=== PATIENT | male | born 1980 | race Caucasian/White ===

== ENCOUNTER 2017-02-13 18:01 | Emergency (ER) | payer OTHER ==
[~2017-02-13] VITALS: Ht 165.1 cm; Wt 72.6 kg
[2017-02-13 18:06] VITALS: BP 128/70
--- NOTE | 2017-02-13 18:46 | RADIOLOGY REPORT ---
EXAMINATION: XR FOOT, RIGHT CLINICAL INFORMATION: History of fall, bruising, swelling of right foot. COMPARISON: None TECHNIQUE: AP, lateral, and oblique views of the right foot. FINDINGS: The bony alignment is intact. The cortices are intact. 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 Accessory ossicle is noted overlying the cuboid. No radiographic evidence of any acute fracture dislocation or any soft tissue abnormality or foreign body visualized. IMPRESSION: No radiographic evidence of any acute fracture, dislocation, soft tissue injury or radiopaque foreign body present.
--- NOTE | 2017-02-13 19:02 | ED UPPER/LOWER EXTREMITY COMPL ---
History of Present Illness General Chief Complaint: Foot or Ankle Injury Stated Complaint: R ?BROKEN FOOT S/P FALL Source: patient Exam Limitations: no limitations Vital Signs & Intake/Output Vital Signs & Intake/Output Vital Signs Date Time Temp Pulse Resp B/P Pulse O2 O2 Flow FiO2 Ox Delivery Rate 02/13 1806 97.7 117 16 128/70 96 Room Air Allergies Coded Allergies: NO KNOWN ALLERGIES (04/13/13) Reconcile Medications Aspirin/Acetaminophen/Caffeine (Excedrin Migraine Caplet) 250 MG-250 MG-65 MG TABLET 2 CAP PO PRN PAIN (Reported) Aspirin/Caffeine (Back & Body Pain Reliever Cplt) 500 MG-32.5 MG TABLET 2 CAP PO PRN PAIN (Reported) Triage Note: PT STATES HE FELL DOWN THE STAIRS ON TUESDAY AND THINKS HE HAS A BROKEN RIGHT FOOT. PT HAS BRUISING AND SWELLING TO RIGHT FOOT Triage Nurses Notes Reviewed? yes Onset: Abrupt Duration: constant Timing: recent history Severity: severe Severity Numbers: 8 HPI: Patient is a 36-year-old male who states that 2 days ago patient fell down stairs and since has been complaining of right dorsal foot pain swelling and ecchymosis. Patient does walk with a limp due to pain. Denies any ankle pain or knee pain. (RENÉ VO) Past History Travel History Traveled to [place] past 21 day No Medical History Any Pertinent Medical History? none Surgical History Surgical History: non-contributory Psychosocial History What is your primary language Italian Tobacco Use: Current Daily Use Daily Tobacco Use Amount/Type: =< 4 Cigarettes daily ETOH Use: denies use Illicit Drug Use: denies illicit drug use Family History Hx Contributory? No (RENÉ VO) Review of Systems Review of Systems Constitutional: Reports: no symptoms. EENTM: Reports: no symptoms. Respiratory: Reports: no symptoms. Cardiovascular: Reports: no symptoms. Gastrointestinal/Abdominal: Reports: no symptoms. Genitourinary: Reports: no symptoms. Musculoskeletal: Reports: see HPI, joint pain. Skin: Reports: see HPI. Neurological/Psychological: Reports: no symptoms. Hematologic/Endocrine: Reports: no symptoms. Immunological: Reports: no symptoms. All Other Systems: Reviewed and Negative (RENÉ VO) Physical Exam Physical Exam General Appearance: no apparent distress Neurologic/Tendon: normal sensation, normal motor functions, normal tendon functions Skin: intact Comments: Well-developed well-nourished no apparent distress. HEENT: Atraumatic, extraocular motion intact Neck: Supple, no lymphadenopathy Back: Nontender Respiratory: No respiratory distress Extremities: Right ankle nontender full active range of motion Right foot noted generalized point tenderness swelling and ecchymosis Sensation intact skin intact Right lower extremity dermatomes intact pedal pulses +2 Neuro: Alert and oriented x3 Psych: Mood affect normal, normal memory normal judgment. (RENÉ VO) Progress Differential Diagnosis: arterial insufficiency, compartment syndrome, contusion, dislocation, DVT, fracture, gout, septic arthritis, sprain, tendon injury Plan of Care: Orders Procedure Date/time Status Durable Medical Equipment 02/13 1923 Active No osseous injury or concern to fracture of where patient was symptomatic. I placed Kj wrap to right foot pre-and post-neurovascular was intact crutches were also administered for weightbearing as tolerated status (RENÉ VO) Diagnostic Imaging: Viewed by Me: Radiology Read. Radiology Impression: no fracture Comments: PATIENT: JUSTICE PETTY PRESENT AGE: 36 PATIENT ACCOUNT NO: [id number] : 80 LOCATION: [facility] ORDERING PHYSICIAN: JOANNE GONSALVES (TBS) DO SERVICE DATE: 02/13/17 EXAM TYPE: RAD - XRY-FOOT COMPLETE, R EXAMINATION: XR FOOT, RIGHT CLINICAL INFORMATION: History of fall, bruising, swelling of right foot. COMPARISON: None TECHNIQUE: AP, lateral, and oblique views of the right foot. FINDINGS: The bony alignment is intact. The cortices are intact. 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 Accessory ossicle is noted overlying the cuboid. No radiographic evidence of any acute fracture dislocation or any soft tissue abnormality or foreign body visualized. IMPRESSION: No radiographic evidence of any acute fracture, dislocation, soft tissue injury or radiopaque foreign body present. DICTATED BY: MICHELLE MARQUEZ MD DATE/TIME DICTATED:02/13/171840 (RENÉ VO) Departure Departure Disposition: HOME OR SELF CARE Condition: Stable Clinical Impression Primary Impression: Right foot sprain Referrals: AARON WILCOX,JODY KAPADIA (PCP/Family) Additional Instructions: As discussed begin icing the area directly 20 minutes every 2 hours. Begin to elevate the foot for swelling begin using the Kj wrap for swelling begin using the crutches and to you walk without pain. If no better in one week follow-up with orthopedic DR. WALKER, If symptoms worsen return to emergency room Departure Forms: Customer Survey General Discharge Information (TEVIN PRADO,RENÉ) PA/EBD TEACHER Co-Sign Statement Statement: ED Attending supervision documentation- [] I saw and evaluated the patient. I have also reviewed all the pertinent lab results and diagnostic results. I agree with the findings and the plan of care as documented in the PA's/EBD TEACHER's documentation. [X] I have reviewed the ED Record and agree with the PA's/EBD TEACHER's documentation. [] Additions or exceptions (if any) to the PAs/EBD TEACHER's note and plan are summarized below: [] (HUBERT WILCOX,NILESH Vasquez)
[2017-02-13] MEDS ORDERED: BACK & BODY PA1 EACH PO (19:05)
[2017-02-13] MEDS ORDERED: EXCEDRIN MIGRA1 EAC1 PO (19:05)
== END 2017-02-13 19:22 ==
LOC: ERH 18:01
DX: S93.601A Unspecified sprain of right foot, initial encounter (principal); W10.9XXA Fall (on) (from) unspecified stairs and steps, initial encounter; Y92.9 Unspecified place or not applicable; Y93.9 Activity, unspecified
CPT/HCPCS: 73630-RT

== ENCOUNTER 2018-01-14 04:39 | Emergency (ER) | payer OTHER ==
[~2018-01-14] VITALS: Ht 165.1 cm; Wt 73.9 kg
[~2018-01-14 04:39] MED LIST: BACK & BODY PA1 EACH PO; EXCEDRIN MIGRA1 EAC1 PO
[2018-01-14 04:44] VITALS: BP 149/94
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
[2018-01-14] MEDS ORDERED: CYCLOBENZAPRINE10 M1 PO (05:11)
[2018-01-14] MEDS ORDERED: IBUPROFEN800 M1 PO (05:11)
== END 2018-01-14 05:39 ==
LOC: ERH 04:39
DX: Z20.2 Contact with and (suspected) exposure to infections with a predominantly sexual mode of transmission (principal); L60.8 Other nail disorders; M54.2 Cervicalgia
CPT/HCPCS: 87491; 87591; 96372; J0456; J0696